=== PATIENT | female | born 1940 | race Caucasian/White ===

== ENCOUNTER 2020-04-26 15:09 | Inpatient (IN) | payer MEDICARE, BC ==
[~2020-04-26] VITALS: Ht 162.6 cm; Wt 41.4 kg
[2020-04-26 15:52] LABS: BASO % 0.2 % (0.0-2.0); EOS % 0.1 % (0-4.0); GRAN # 9.9 (1.4-6.5); GRAN % 85.9 % (42.2-75.2); HEMATOCRIT 38.8 % (37.0-47.0); HEMOGLOBIN 13.4 g/dl (12.5-16.0); LYMPH # 0.8 (1.2-3.4); LYMPH % 6.8 % (20.0-51.0); MEAN CELL VOLUME 101 fl (80.0-100.0); MEAN CORPUSCULAR HEMOGLOBIN 35 pg (27.0-31.0); MEAN CORPUSCULAR HGB CONC 35 g/dl (33.0-37.0); MEAN PLATELET VOLUME 10.5 fl (7.4-10.4); MONO # 0.8 (0.1-0.6); MONO % 6.7 % (1.7-9.3); PLATELET COUNT 194 K/mm3 (130-400); RED BLOOD COUNT 3.84 M/mm3 (4.10-5.30)
[2020-04-26 15:59] LABS: INR 2.9 (0.8-3.0)
[2020-04-26 16:06] LABS: ALANINE AMINOTRANSFERASE 71 U/L (4-34); ALBUMIN 3.8 gm/dL (3.5-5.0); ALKALINE PHOSPHATASE 125 U/L (50-136); ANION GAP 9 mmol/L (7-16); AST,SGOT 79 U/L (15-37); BILIRUBIN,TOTAL 0.6 mg/dL (0.0-1.0); BLOOD UREA NITROGEN 19 mg/dL (7-17); CALCIUM 9.2 mg/dL (8.4-10.2); CARBON DIOXIDE 20 mmol/L (22-30); CHLORIDE 99 mmol/L (98-107); CREATINE KINASE 62 U/L (30-135); CREATININE, serum 0.59 (0.52-1.25); GLUCOSE 142 mg/dL (74-106); SODIUM 128 mmol/L (137-145); TOTAL PROTEIN 6.5 gm/dL (6.4-8.2)
[2020-04-26] MEDS ORDERED: METHOTREXA2.5 MG/TAB (16:14)
[2020-04-26] MEDS ORDERED: SYNTHROID0.05 MG/TA PO (16:15)
[2020-04-26] MEDS ORDERED: LIPITOR 40MG TA40 MG PO (16:15)
[2020-04-26] MEDS ORDERED: PRILOSEC 20MG20 MG PO (16:16)
[2020-04-26] MEDS ORDERED: LOPRESSOR 550 MG/TAB PO (16:16)
[2020-04-26] MEDS ORDERED: VASOTEC 10M10 MG/TAB PO (16:18)
[2020-04-26 16:24] LABS: TROPONIN-I < 0.012 ng/mL (0.000-0.035)
[2020-04-26 16:40] LABS: COLLECTION METHOD CATHETER
[2020-04-26 16:50] LABS: MUCOUS Present /lpf; PH 6 (5-8); SQUAMOUS EPITHELIAL None Seen /hpf; URINE APPEARANCE Hazy; URINE BACTERIA None Seen /hpf; URINE BILIRUBIN Negative (NEGATIVE); URINE BLOOD Negative (NEGATIVE); URINE COLOR Yellow; URINE GLUCOSE Negative (NEGATIVE); URINE KETONE Negative (NEGATIVE); URINE LEUKOCYTE ESTERASE Negative (NEGATIVE); URINE NITRATE Negative (NEGATIVE); URINE PROTEIN(semi-quant) Negative (NEGATIVE); URINE RBC 0-2 /hpf; URINE UROBILINOGEN Negative (NEGATIVE)
[2020-04-26] MEDS ORDERED: COUMADIN 22.5 MG/TAB PO (22:10)
[2020-04-26 23:12] VITALS: BP 173/64; PULSE 68; TEMP 97.4
[2020-04-27] VITALS (11 sets, daily range): BP systolic 105–156; BP diastolic 52–80; PULSE 59–70; TEMP 97.4–98.3
--- NOTE | 2020-04-27 01:46 | NUR ---
Patient admitted to medical floor room 357 from [facility] 22:00 pm. Patient is very hard of hearing. Patient alert and oriented. Patient c/o left arm pain 6/10. Patient reports numbness/tingling to her left arm. Left arm is very weak. Able to move her fingers and lift up left arm a little bit. Left arm pulses are palpable. Patient denies chest pain, SOB, dyspnea, or dizziness. PRN Tylenol given for pain. Patient started to feeling nauseous after a while. PRN Zofran given for nausea. Patient had clear liquid emesis x2 shortly after had Zofran. Kern catheter 14fr inserted via sterile technique. Call light within reach. Will continue to monitor.
--- NOTE | 2020-04-27 07:00 | NUR ---
Report received from HINA Win. Pt in bed resting, writing name on whiteboard d/t [email or web address]. Will continue to monitor.
[2020-04-27 07:47] LABS: BASO % 0.1 % (0.0-2.0); EOS % 0.1 % (0-4.0); GRAN # 9.3 (1.4-6.5); GRAN % 86.5 % (42.2-75.2); LYMPH # 0.7 (1.2-3.4); LYMPH % 6.1 % (20.0-51.0); MEAN CELL VOLUME 102 fl (80.0-100.0); MEAN CORPUSCULAR HGB CONC 35 g/dl (33.0-37.0); MEAN PLATELET VOLUME 10.6 fl (7.4-10.4); MONO # 0.7 (0.1-0.6); MONO % 6.9 % (1.7-9.3); PLATELET COUNT 164 K/mm3 (130-400); RED BLOOD COUNT 3.15 M/mm3 (4.10-5.30)
[2020-04-27 07:51] LABS: HEMOGLOBIN 11.1 g/dl (12.5-16.0); MEAN CORPUSCULAR HEMOGLOBIN 35 pg (27.0-31.0)
[2020-04-27 07:59] LABS: ALBUMIN 3.1 gm/dL (3.5-5.0); BILIRUBIN,TOTAL 0.6 mg/dL (0.0-1.0); CALCIUM 8.1 mg/dL (8.4-10.2); CREATININE, serum 0.53 (0.52-1.25); POTASSIUM 3.8 mmol/L (3.4-5.0); TOTAL PROTEIN 5.5 gm/dL (6.4-8.2)
--- NOTE | 2020-04-27 10:19 | NUR ---
Assessment charted. PT doing well, cochlear implant in place now and pt able to hear enough. Pt up with PT in bed to chair and was a max 2 assist, unable to control L side of body. Weak grasp on L and able to lift arm and leg but falls back to bed. Able to take pills well. Echo in room now. IVF to L A/C. Will continue to monitor.
--- NOTE | 2020-04-27 15:04 | NUR ---
Plan is still being tallked about. Patient use [employer] to have the Closed caption kinjal to communication. Patient is hard of hearing but can read the program. Patient reports that her brother Antonio Perry is her POA . Patient rports that her niece Xenia Betancourt is a alternate . Patient reports that she is independent. Patient reports that she is not opposed to outpatient services for Physical Therapy and until a few days away was completely independent. PCP is NANI Martinez. Patient rerports that she will need a wheelchair. Will need to obtain measurements for wheelchair. Will discuss options for rehab or family care at home and let the SW know decisions. Wants time to talk with family about staying at the brothers home and recieving HH or OutPatient therapy.
--- NOTE | 2020-04-27 18:19 | NUR ---
Pt has rested off and on this shift. Denies needs, has had no new nausea from CT scan dye today and has been doing well. Will give report to nightshift nurse who will resume care.
--- NOTE | 2020-04-27 18:55 | NUR ---
Bedside report received from HINA Ho. Patient is having dinner in bed. Denies any needs at this time. Call light within reach.
--- NOTE | 2020-04-27 19:46 | NUR ---
Assessment done and charted. Patient sitting up in bed and watching TV. Patient reports the pain to her shoulder is better compare to yesterday. Denies need for pain medicine at this time. Denies SOB/dyspnea, or N/V at this time. All scheduled meds given at this time. Call light within reach. Will continue to monitor.
[2020-04-28 03:07] VITALS: BP 144/63; PULSE 67; TEMP 97.6
[2020-04-28 06:36] LABS: BASO % 0.1 % (0.0-2.0); EOS # 0.1 (0.0-0.7); GRAN # 8.3 (1.4-6.5); GRAN % 82.9 % (42.2-75.2); HEMOGLOBIN 11.2 g/dl (12.5-16.0); LYMPH # 0.8 (1.2-3.4); LYMPH % 7.6 % (20.0-51.0); MEAN CELL VOLUME 102 fl (80.0-100.0); MEAN CORPUSCULAR HEMOGLOBIN 35 pg (27.0-31.0); MEAN CORPUSCULAR HGB CONC 34 g/dl (33.0-37.0); MEAN PLATELET VOLUME 10.9 fl (7.4-10.4); MONO # 0.8 (0.1-0.6); PLATELET COUNT 179 K/mm3 (130-400); RED BLOOD COUNT 3.22 M/mm3 (4.10-5.30); REDCELL DISTRIBUTION WIDTH-CV 13.3 % (11.5-14.5)
[2020-04-28 06:40] LABS: BILIRUBIN,TOTAL 0.6 mg/dL (0.0-1.0); CALCIUM 8.2 mg/dL (8.4-10.2); CREATININE, serum 0.61 (0.52-1.25); POTASSIUM 3.6 mmol/L (3.4-5.0); TOTAL PROTEIN 5.4 gm/dL (6.4-8.2)
[2020-04-28 06:54] LABS: HEMATOCRIT 32.8 % (37.0-47.0)
--- NOTE | 2020-04-28 07:00 | NUR ---
Report received from HINA Win. pT in bed resting with eyes closed, will continue to monitor.
[2020-04-28 07:09] LABS: INR 1.9 (0.8-3.0); PROTHROMBIN TIME 21.8 SECONDS (9.7-12.8)
[2020-04-28 08:44] VITALS: BP 129/55; PULSE 66; TEMP 98.4
--- NOTE | 2020-04-28 10:44 | NUR ---
Assessment charted. pT sitting up in chair, L side similar to yesterday, pt can move extremities and lift them but fall back and has trouble controllin, almost like ataxia. Writing communications on board in room. Denies needs, encouraged PO intake today, pt has small amount of dark yellow urine in back at side of chair. Will continue to monitor.
[2020-04-28 11:39] VITALS: BP 140/57; PULSE 55; TEMP 97.9; TEMP 98.3
[2020-04-28 15:52] VITALS: BP 143/68; PULSE 57; TEMP 97.6
--- NOTE | 2020-04-28 18:13 | NUR ---
Pt rested off and on today, encouraged PO intake but pt does not eat or drink much and is very petite. Denies pain, continues to have L side weakness/ataxia. Will give bedside shift report to nigthshift nurse who will resume care.
[2020-04-28 20:32] VITALS: BP 132/82; PULSE 65; TEMP 98.4
[2020-04-29] VITALS (7 sets, daily range): BP systolic 116–149; BP diastolic 52–67; PULSE 57–64; TEMP 97.3–98.4
[2020-04-29 06:53] LABS: BASO % 0.2 % (0.0-2.0); EOS # 0.4 (0.0-0.7); EOS % 3.6 % (0-4.0); GRAN # 7.6 (1.4-6.5); GRAN % 75.8 % (42.2-75.2); HEMOGLOBIN 10.5 g/dl (12.5-16.0); LYMPH # 0.8 (1.2-3.4); MEAN CELL VOLUME 102 fl (80.0-100.0); MEAN CORPUSCULAR HEMOGLOBIN 35 pg (27.0-31.0); MEAN CORPUSCULAR HGB CONC 35 g/dl (33.0-37.0); MEAN PLATELET VOLUME 11.5 fl (7.4-10.4); MONO # 1.2 (0.1-0.6); MONO % 11.9 % (1.7-9.3); PLATELET COUNT 180 K/mm3 (130-400); RED BLOOD COUNT 2.97 M/mm3 (4.10-5.30); REDCELL DISTRIBUTION WIDTH-CV 13.3 % (11.5-14.5)
[2020-04-29 07:01] LABS: INR 2.1 (0.8-3.0); PROTHROMBIN TIME 23.3 SECONDS (9.7-12.8)
[2020-04-29 07:09] LABS: HEMATOCRIT 30.4 % (37.0-47.0)
[2020-04-29 08:04] LABS: ALBUMIN 2.7 gm/dL (3.5-5.0); BILIRUBIN,TOTAL 0.5 mg/dL (0.0-1.0); CALCIUM 8.2 mg/dL (8.4-10.2); CREATININE, serum 0.65 (0.52-1.25); POTASSIUM 3.7 mmol/L (3.4-5.0); TOTAL PROTEIN 5.1 gm/dL (6.4-8.2)
[2020-04-29] MEDS ORDERED: ASPIRIN E.C. 8181 MG PO (08:37)
--- NOTE | 2020-04-29 09:37 | NUR ---
Assessment completed, alert/oriented, vital signs stable, left sided weakness noted to upper and lower extrm., she has no facial droop or speech/ swallowing difficulties, she reports numbness to left arm and leg are worsening and I have notified, she is a max assist for transfers and mobility, no other neuro deficits noted, she reports some intermittent left shoulder pain/ there is also some bruising present to that left scapula area, she denies falling on that side or having an injury, heart RRR/ distal pulses are palpable, lungs CTA/ no resp.difficulty noted, discused plan of care with hospitalist
--- NOTE | 2020-04-29 11:28 | NUR ---
SW attended clinical rounds. PT is recommending IPR vs SNF. SW followed up with the patient and her brother, Antonio (c.ph#[phone]). The patient is hard of hearing. SW used the white board to also communitcate with the patient. The patient and Antonio are agreeable to rehab and prefer 1) [facility] 2) [facility]. SW contacted and faxed a referral to both facilities. Awaiting screens. Antonio confirms that he is the patient's DPOA-HC and that he can bring a copy up to the hospital. SW to continue to follow. IFRAH also consulted [facility] Director, Lindsay.
--- NOTE | 2020-04-29 14:24 | NUR ---
Mannie, at [facility], reports that they are able to accept the patient for a skilled stay.
--- NOTE | 2020-04-29 20:00 | NUR ---
Report received, assumed care for operation shift supervisor. Assessment complete. A&Ox3. Denies nausea/shortness of breath. States she is having pain to left elbow/shoulder area-rating pain 2/10-described as ache. Also noted to have some bruising to left shoulder/elbow with slight edema. States she thinks it happened when she fell. Left sided weakness noted. Kern cath with clear yellow urine. Plan of care discussed for this shift to include HS meds/repositioning/calling for questions/concerns. Verbalizes understanding/denies needs. Call light in reach. Will monitor.
--- NOTE | 2020-04-29 21:54 | NUR ---
KRISHNA Jay notified of blood pressure of 115/55 and HTN meds due-requesting to hold. States okay to hold. Will recheck BP at 0000 and re-evaluate.
--- NOTE | 2020-04-30 | NUR ---
Blood pressure now 144/55. HS dose of vasotec/metoprolol given per dr order. Repositioned in bed with pillow support. Rating pain 3/10 to left elbow but denies need for intervention. Will continue to monitor.
--- NOTE | 2020-04-30 03:00 | NUR ---
Resting eyes closed. No s/s of pain noted.
[2020-04-30 03:53] VITALS: BP 132/59; PULSE 68; TEMP 97.4
--- NOTE | 2020-04-30 04:30 | NUR ---
Repositioned in bed with pillow support to right side-left upper extremity elevated on pillows. Still rating pain 2/10 on pain scale-described as constant throbbing. Denies need for intervention.
--- NOTE | 2020-04-30 06:08 | NUR ---
AM meds given. States she hasnt slept much since 0300 due to pain increasing in left elbow. Repositioned with pillow support to left side. Rating pain 6/10 now-described as constant throbbing. States she will take some tylenol. Given per dr richardson. Will monitor.
[2020-04-30 07:16] LABS: BASO % 0.2 % (0.0-2.0); EOS # 0.1 (0.0-0.7); EOS % 1.4 % (0-4.0); GRAN # 7.6 (1.4-6.5); GRAN % 78.7 % (42.2-75.2); HEMOGLOBIN 12.3 g/dl (12.5-16.0); LYMPH # 0.7 (1.2-3.4); LYMPH % 7.1 % (20.0-51.0); MEAN CELL VOLUME 101 fl (80.0-100.0); MEAN CORPUSCULAR HEMOGLOBIN 35 pg (27.0-31.0); MEAN CORPUSCULAR HGB CONC 35 g/dl (33.0-37.0); MEAN PLATELET VOLUME 11.3 fl (7.4-10.4); MONO # 1.2 (0.1-0.6); MONO % 12.1 % (1.7-9.3); PLATELET COUNT 217 K/mm3 (130-400); RED BLOOD COUNT 3.49 M/mm3 (4.10-5.30); REDCELL DISTRIBUTION WIDTH-CV 13.6 % (11.5-14.5)
[2020-04-30 07:27] LABS: HEMATOCRIT 35.3 % (37.0-47.0)
[2020-04-30 07:35] LABS: CALCIUM 8.5 mg/dL (8.4-10.2); CREATININE, serum 0.63 (0.52-1.25); POTASSIUM 3.4 mmol/L (3.4-5.0)
[2020-04-30 07:38] VITALS: BP 143/55; PULSE 69; TEMP 98.3
[2020-04-30 08:57] LABS: INR 1.9 (0.8-3.0); PROTHROMBIN TIME 20.8 SECONDS (9.7-12.8)
--- NOTE | 2020-04-30 09:28 | NUR ---
Assessment completed, alert/ oriented but forgetful, at this time denies pain but says left arm is painful at times "nerve pain", vital signs stable, severe left sided weakness is unchanged, no other neuro deficits, heart RRR/ distal pulses are palpable, lungs CTA/ no resp.difficulty noted, up to chair with PT and is a total assist at this time, morning meds given, COVID swab negative, discharge planning for SNF, she is eating breakfast and denies other needs at this time,
[2020-04-30] MEDS ORDERED: PLAVIX 75MG TAB75 MG PO (10:27)
[2020-04-30] MEDS ORDERED: TYLENOL 325MG325 MG PO (10:27)
[2020-04-30 11:15] VITALS: BP 143/55; PULSE 69; TEMP 98.3
[2020-04-30 11:27] VITALS: BP 140/74; PULSE 64; TEMP 97.6
--- NOTE | 2020-04-30 11:42 | NUR ---
Areli, at [facility], reports that they are able to accept the patient.
--- NOTE | 2020-04-30 11:48 | NUR ---
First visit from the train gate attendant. No needs right now.
--- NOTE | 2020-04-30 14:19 | NUR ---
The patient is ready to d/c today. IFRAH met with the patient and her brother, Antonio, to inform of [facility] and [facility] acceptance. The patient and her brother report that they now prefer [facility]. IFRAH followed up with [facility] Director, Lindsay. Lindsay reports that they do not have any beds available. IFRAH updated the patient and her brother. The patient and her brother wanted to confirm the visitor policy at [facility]. IFRAH confirmed the visitation with Mannie at [facility]. IFRAH updated the patient and Antonio. The patient and Antonio chose to pursue [facility]. The patient is to discharge today, 04/30, to [facility] for a skilled stay. Transportation was scheduled around 1530, via [facility]. IFRAH informed the patient, her brother, and RN of the time. They were all agreeable to the time. IFRAH presented the IM form to the patient. The patient read and signed the form. IFRAH provided her with a copy. No additional needs at this time.
--- NOTE | 2020-04-30 16:00 | NUR ---
Patient transferring to [facility] at this time, I have called report to receiving nurse Anne at [facility], IV removed, patient brother present at time of discharge
== END 2020-04-30 16:00 | DRG 948 ==
LOC: COL.ER 15:09 → MEDICAL 19:27
PROVIDERS: Nurse Practitioner Family; Physician Assistant; Student in an Organized Health Care Education/Training Program; ADMIT Family Medicine
DX: R53.1 Weakness (principal); E87.1 Hypo-osmolality and hyponatremia; I10 Essential (primary) hypertension; M06.9 Rheumatoid arthritis, unspecified; M81.0 Age-related osteoporosis without current pathological fracture; K21.9 Gastro-esophageal reflux disease without esophagitis; E03.9 Hypothyroidism, unspecified; E78.5 Hyperlipidemia, unspecified; I25.10 Atherosclerotic heart disease of native coronary artery without angina pectoris; R79.89 Other specified abnormal findings of blood chemistry; I65.22 Occlusion and stenosis of left carotid artery; Z20.822 Contact with and (suspected) exposure to COVID-19; Z79.01 Long term (current) use of anticoagulants; Z95.2 Presence of prosthetic heart valve
CPT/HCPCS: 99223-AI; 99232-AI; 99233-AI; 99239; J2405; J7030; Q9967

== ENCOUNTER → 2020-06-27 | Outpatient (CLI) | payer MEDICARE, BC ==
[~2020-06-27] MED LIST: ASPIRIN E.C. 8181 MG PO; COUMADIN 22.5 MG/TAB PO; LIPITOR 40MG TA40 MG PO; LOPRESSOR 550 MG/TAB PO; METHOTREXA2.5 MG/TAB; PLAVIX 75MG TAB75 MG PO; PRILOSEC 20MG20 MG PO; SYNTHROID0.05 MG/TA PO; TYLENOL 325MG325 MG PO; VASOTEC 10M10 MG/TAB PO
[2020-06-27 11:07] LABS: BILIRUBIN UNCONJUGATED 0.2 mg/dL (0.0-1.1); BILIRUBIN,TOTAL 0.2 mg/dL (0.0-1.0); TOTAL PROTEIN 5.5 gm/dL (6.4-8.2)
== END ==
LOC: ZLAB.STJ 09:32
PROVIDERS: Internal Medicine Rheumatology
DX: I10 Essential (primary) hypertension (principal); I35.0 Nonrheumatic aortic (valve) stenosis; M06.9 Rheumatoid arthritis, unspecified

== ENCOUNTER 2021-09-29 21:54 | Emergency (ER) | payer MEDICARE, BC ==
[~2021-09-29] VITALS: Ht 134.6 cm; Wt 41.8 kg
[2021-09-29 22:02] VITALS: TEMP 97.3
[2021-09-29 23:19] VITALS: BP 115/75; PULSE 71
== END 2021-09-29 23:20 | disposition home or self-care (01) ==
LOC: COL.ER 21:54
DX: S51.811A Laceration without foreign body of right forearm, initial encounter (principal); Z79.01 Long term (current) use of anticoagulants; W23.1XXA Caught, crushed, jammed, or pinched between stationary objects, initial encounter

== ENCOUNTER → 2021-11-05 | Outpatient (CLI) | payer MEDICARE, BC | LOC: COL.RAD 12:30 | DX: I63.9 Cerebral infarction, unspecified (principal); I65.22 Occlusion and stenosis of left carotid artery; I71.2 Thoracic aortic aneurysm, without rupture; M47.812 Spondylosis without myelopathy or radiculopathy, cervical region | CPT/HCPCS: Q9967 ==

== ENCOUNTER 2022-07-20 11:31 | Observation (INO) | payer MEDICARE, BC ==
[~2022-07-20] VITALS: Wt 41.8 kg
[2022-07-20 12:59] LABS: BASO % 0.3 % (0.0-2.0); EOS # 0.2 K/mm3 (0.0-0.7); EOS % 2.5 % (0.0-4.0); GRAN % 78.5 % (42.2-75.2); HEMOGLOBIN 11.9 g/dl (12.5-16.0); LYMPH # 0.6 K/mm3 (1.2-3.4); LYMPH % 9.1 % (20.0-51.0); MEAN CELL VOLUME 95 fl (80.0-100.0); MEAN CORPUSCULAR HEMOGLOBIN 34 pg (27-31); MEAN CORPUSCULAR HGB CONC 35 g/dl (33.0-37.0); MONO # 0.6 K/mm3 (0.1-0.6); MONO % 9.3 % (1.7-9.3); PLATELET COUNT 188 K/mm3 (130-400); RED BLOOD COUNT 3.53 M/mm3 (4.10-5.30); REDCELL DISTRIBUTION WIDTH-CV 13.1 % (11.5-14.5)
[2022-07-20 13:01] LABS: HEMATOCRIT 33.6 % (37.0-47.0)
[2022-07-20 13:12] LABS: ALBUMIN 3.5 gm/dL (3.4-4.8); BILIRUBIN,TOTAL 0.4 mg/dL (0.2-1.2); C-REACTIVE PROTEIN 5.09 mg/dL (0.00-0.50); CALCIUM 8.9 mg/dL (8.4-10.2); CREATININE, serum 0.76 mg/dL (0.57-1.11); POTASSIUM 4.3 mmol/L (3.5-4.5)
[2022-07-20 13:33] LABS: INR 1.8 (0.8-3.0); PROTHROMBIN TIME 20.3 SECONDS (9.7-12.8)
[2022-07-20 14:57] LABS: COLLECTION METHOD CLEAN CATCH
[2022-07-20 15:01] LABS: MUCOUS Present (NOT PRESENT); SQUAMOUS EPITHELIAL 0-2 /hpf (0-10); URINE BACTERIA Rare /hpf (NONE SEEN)
[2022-07-20 15:02] LABS: URINE COLOR Yellow (YELLOW)
[2022-07-20 15:03] LABS: PH 7.5 (5-8); URINE APPEARANCE Hazy (CLEAR/HAZY); URINE BLOOD 1+ (NEGATIVE); URINE GLUCOSE Negative (NEGATIVE); URINE KETONE Negative (NEGATIVE); URINE NITRATE Negative (NEGATIVE); URINE PROTEIN(semi-quant) Negative (NEGATIVE); URINE UROBILINOGEN 0.2 (NEGATIVE)
--- NOTE | 2022-07-20 16:17 | NUR ---
PT DOES NOT KNOW WHAT MEDICATIONS SHE IS TAKING AT HOME OR WHEN SHE HAS TAKEN THEM LAST. KNIT TUBING DYER TRIED TO CALL THE PHARMACY TO CLARIFY MED REC, BUT THE PHARMACY IS CLOSED DUE TO THE HOLIDAY.
[2022-07-20 17:00] VITALS: BP_SYST 206
[2022-07-20 20:59] VITALS: BP 109/58; PULSE 78; TEMP 97.5
[2022-07-20 21:00] VITALS: BP_SYST 109
[2022-07-21] VITALS (13 sets, daily range): BP systolic 125–151; BP diastolic 66–85; PULSE 81–133; TEMP 97.2–98.6
[2022-07-21 06:25] LABS: BASO % 0.3 % (0.0-2.0); EOS # 0.2 K/mm3 (0.0-0.7); EOS % 3.8 % (0.0-4.0); GRAN # 4.6 K/mm3 (1.4-6.5); GRAN % 72.3 % (42.2-75.2); HEMOGLOBIN 12.5 g/dl (12.5-16.0); LYMPH # 0.8 K/mm3 (1.2-3.4); LYMPH % 12.3 % (20.0-51.0); MEAN CELL VOLUME 96 fl (80.0-100.0); MEAN CORPUSCULAR HEMOGLOBIN 34 pg (27-31); MEAN CORPUSCULAR HGB CONC 35 g/dl (33.0-37.0); MEAN PLATELET VOLUME 9.7 fl (7.4-10.4); MONO # 0.7 K/mm3 (0.1-0.6); MONO % 11.1 % (1.7-9.3); PLATELET COUNT 211 K/mm3 (130-400); RED BLOOD COUNT 3.68 M/mm3 (4.10-5.30)
[2022-07-21 06:26] LABS: HEMATOCRIT 35.3 % (37.0-47.0)
[2022-07-21 06:44] LABS: ALBUMIN 3.6 gm/dL (3.4-4.8); CALCIUM 8.9 mg/dL (8.4-10.2); CREATININE, serum 0.73 mg/dL (0.57-1.11); MAGNESIUM 1.7 mg/dL (1.6-2.6); POTASSIUM 4.1 mmol/L (3.5-4.5)
--- NOTE | 2022-07-21 10:20 | NUR ---
SHIFT ASSESSMENT COMPLETED AND MORNING MEDICATIONS ADMINISTERED PER ORDER. PATIENT IS ALERT AND ORIENTED. DENIES PAIN. LUNGS CTA. UP IN CHAIR. ATTEMPTED TO CALL DAUGHTER PER PATIENT REQUEST, NO ANSWER. DENIES NEEDS. CALL LIGHT WITHIN REACH.
--- NOTE | 2022-07-21 11:23 | NUR ---
The patient was admitted for falls and weakness. The patient's brother reported on admission that the patient has been having difficulties caring for herself. IFRAH contacted the patient's brother, Antonio Perry (ph#[phone]), to complete intake. Antonio provides that he believes the patient has a life expectancy of 6 months or less and they are interested in hospice for the patient at the [facility]. Antonio provides that he is aware room and board would be private pay. He states that the patient does have a DPOA-HC and that it designates him and possibly the patient's daughter, Helio Hill (ph#[phone]). IFRAH requested that he bring a copy of the DPOA-HC to the hospital. Antonio states that he could do this when he comes up to the hospital later today. The patient's PCP is Dr. Christy Peterson. IFRAH updated the hospitalist. IFRAH contacted Marianela, Foundation Coordinator, at [facility] to inquire if they have the patient's DPOA-HC on file. Marianela reports that they do not. IFRAH contacted and emailed a referral to Helio at [facility]. Helio states that they do have beds available and they will look over the referral. *Discharge plan: [facility]. Awaiting acceptance*
--- NOTE | 2022-07-21 14:40 | NUR ---
Initial visit: [facility] stopped by room on rounds. Pt was resting and content. Pt has no needs right now. [facility]over will follow up as needed.
--- NOTE | 2022-07-21 17:43 | NUR ---
PATIENT UP IN CHAIR. C/O SOME MILD PAIN, REQUESTING TYLENOL. NO TYLENOL ORDERS NOTED, DR. WEINBERG UPDATED. REFUSED ANTIBIOTICS. DR. WEINBERG NOTIFIED OF HR OF 115. PLAN IS FOR PATIENT TO D/C TO HOSPICE TOMORROW. DENIES FURTHER NEEDS. CHAIR ALARM ON AND CALL LIGHT WITHIN REACH.
--- NOTE | 2022-07-21 18:55 | NUR ---
PRN APAP OFFERED, PATIENT REFUSED, STATES SHE DOES NOT WANT TO TAKE IT WHILE SITTING IN THE CHAIR. OFFERED TO ASSIST PATIENT BACK TO BED, PATIENT REFUSED.
[2022-07-21] MEDS ORDERED: DESYREL 100MG100 MG PO (20:54)
[2022-07-22 01:59] VITALS: BP_SYST 130
--- NOTE | 2022-07-22 02:59 | NUR ---
AT BEGINING OF SHIFT PT REQUESTED HER BROTHER BE CALLED TO GET AHOLD OF PAST SUPERVISOR [employer], SHE WAS ON VACATION. PT WANTING HER WHEELCHAIR HERE BROTHER INFORMED THIS RN THAT HE WOULD BE HERE SOMETIME TOMORROW WITH HER PHONE AND WHEELCHAIR. PT ACCEPTED THIS. TALKED WITH HOSPITALIST TRANSMISSION SPECIALIST AND ASKED FOR PT HOME SLEEP AIDE, ORDERS WERE PUT IN. PT OTHERWISE ASSESSED AT 2140 SEE DOCUMENTATION. PT HAVING PAIN TYLENOL WAS GIVEN. PT RESTING IN LOW BED WITH CALL LIGHT WITHIN REACH. 0047 HOSPITALIST CALLED ABOUT PTS HR IN THE 130S, NO NEW ORDERS RECIEVED, WILL CONTINUE TO MONITOR.
[2022-07-22 03:41] VITALS: BP 107/62; PULSE 105; TEMP 97.5
[2022-07-22 04:18] VITALS: BP_SYST 107
--- NOTE | 2022-07-22 05:39 | NUR ---
PT REQUESTED TO TAKE SYNTHROID LATER AFTER 0700.
[2022-07-22 08:07] VITALS: BP 145/70; PULSE 110; TEMP 97.5
[2022-07-22 08:36] LABS: BASO % 0.4 % (0.0-2.0); EOS # 0.2 K/mm3 (0.0-0.7); EOS % 3.2 % (0.0-4.0); GRAN # 3.6 K/mm3 (1.4-6.5); GRAN % 69.2 % (42.2-75.2); HEMOGLOBIN 11.9 g/dl (12.5-16.0); LYMPH # 0.7 K/mm3 (1.2-3.4); LYMPH % 12.7 % (20.0-51.0); MEAN CELL VOLUME 96 fl (80.0-100.0); MEAN CORPUSCULAR HEMOGLOBIN 34 pg (27-31); MEAN CORPUSCULAR HGB CONC 36 g/dl (33.0-37.0); MEAN PLATELET VOLUME 9.9 fl (7.4-10.4); MONO # 0.8 K/mm3 (0.1-0.6); MONO % 14.3 % (1.7-9.3); PLATELET COUNT 215 K/mm3 (130-400); RED BLOOD COUNT 3.48 M/mm3 (4.10-5.30); REDCELL DISTRIBUTION WIDTH-CV 13.2 % (11.5-14.5)
[2022-07-22 08:42] LABS: HEMATOCRIT 33.3 % (37.0-47.0)
--- NOTE | 2022-07-22 08:46 | NUR ---
SHIFT ASSESSMENT COMPLETED AND MORNING MEDICATIONS ADMINISTERED PER ORDER. PATIENT IS ALERT AND PARTIALLY ORIENTED WITH SOME INTERMITTENT CONFUSION. LUNGS CTA. IV PATENT WITH NO SIGNS OF COMPLICATIONS. CONTRACTURE TO LEFT HAND. DENIES PAIN. UP IN CHAIR. INCONTINENCE CARE PROVIDED. CALL LIGHT IN REACH.
[2022-07-22 09:00] VITALS: BP_SYST 145
[2022-07-22 09:08] LABS: ALBUMIN 3.3 gm/dL (3.4-4.8); CALCIUM 8.5 mg/dL (8.4-10.2); CREATININE, serum 0.71 mg/dL (0.57-1.11); MAGNESIUM 1.7 mg/dL (1.6-2.6); PHOSPHOROUS 1.8 mg/dL (2.3-4.7); POTASSIUM 4.1 mmol/L (3.5-4.5)
--- NOTE | 2022-07-22 09:47 | NUR ---
Helio, at [facility], reports that they are able to accept the patient today. They request a 1030 arrival time at the hospice house. IFRAH contacted and updated the patient's brother, Antonio. Antonio is in agreement to the plan. Antonio verbalized understanding and gave SW approval to sign the EMS consent for on his behalf. The patient is to discharge today, 07/22, to the [facility]. Transportation provided by [facility]. RN updated. No additional needs at this time.
--- NOTE | 2022-07-22 10:21 | NUR ---
PATIENT TRANSFERRING TO HOSPICE HOUSE VIA EMS. IV TO RIGHT FOREARM REMOVED WITH CATHETER INTACT, NO BLEEDING NOTED, GAUZE DRESSING APPLIED. REPORT GIVEN TO NURSE EVA AT HOSPICE HOUSE. PATIENT ESCORTED OUT BY EMS. TELE REMOVED PRIOR TO DISCHARGE.
== END 2022-07-22 10:35 | disposition hospice, inpatient (51) ==
LOC: COL.ER 11:31 → MEDICAL 14:25
PROVIDERS: Nurse Practitioner; ADMIT Internal Medicine
DX: R53.1 Weakness (principal); R29.6 Repeated falls; N39.0 Urinary tract infection, site not specified; E87.1 Hypo-osmolality and hyponatremia; I34.2 Nonrheumatic mitral (valve) stenosis; I10 Essential (primary) hypertension; I25.10 Atherosclerotic heart disease of native coronary artery without angina pectoris; E78.5 Hyperlipidemia, unspecified; K21.9 Gastro-esophageal reflux disease without esophagitis; E03.9 Hypothyroidism, unspecified; M81.0 Age-related osteoporosis without current pathological fracture; M06.9 Rheumatoid arthritis, unspecified; Z95.2 Presence of prosthetic heart valve; Z79.01 Long term (current) use of anticoagulants; Z79.899 Other long term (current) drug therapy; Z79.890 Hormone replacement therapy
CPT/HCPCS: G0378; J0696; J2060; J7030